=== PATIENT | female | born 1955 | race Hispanic/Latino ===

== ENCOUNTER 2020-05-24 12:47 | Emergency (ER) | payer BC ==
[2020-05-24 13:24] LABS: BASOPHILS % (AUTO) 0.4 % (0.0-5.0); EOSINOPHILS % (AUTO) 1.1 % (0.0-8.0); HEMATOCRIT 37.7 % (36-48); LYMPHOCYTES % (AUTO) 8.2 % (21.0-51.0); MEAN CORPUSCULAR HEMOGLOBIN 34.8 pg (27.0-33.0); MEAN CORPUSCULAR VOLUME 99.5 fL (79-99); MONOCYTES % (AUTO) 9.9 % (3.0-13.0); NEUTROPHILS % (AUTO) 79.1 % (40.0-77.0); PLATELET COUNT (AUTO) 46 K/uL (130-400); RED BLOOD CELL COUNT(AUTO) 3.79 MIL/uL (4.00-5.50); RED CELL DISTRIBUTION WIDTH 14.6 % (11.0-15.5); WHITE BLOOD COUNT (AUTO) 16.3 K/uL (4.8-10.8)
[2020-05-24 13:31] LABS: APPEARANCE,URINE Cloudy (CLEAR); BILIRUBIN,URINE Moderate (NEGATIVE); COLOR,URINE Dark Yellow (YELLOW); GLUCOSE, URINE (UA) Negative (NEGATIVE); KETONES,URINE Trace mg/dL (NEGATIVE); LEUKOCYTE ESTERASE ,URINE Small (NEGATIVE); NITRATE,URINE Positive (NEGATIVE); OCCULT BLOOD,URINE Trace (NEGATIVE); PROTEIN,URINE POS 1+ mg/dL (NEGATIVE)
[2020-05-24 13:35] LABS: CREATININE 0.9 mg/dL (0.5-1.5); POTASSIUM 3.4 mmol/L (3.5-5.1)
[2020-05-24 13:40] LABS: ALBUMIN 2.8 g/dL (3.5-5.0); BILIRUBIN,TOTAL 6.2 mg/dL (0.2-1.0); TOTAL PROTEIN, SERUM 6.8 g/dL (6.0-8.3)
[2020-05-24 13:58] LABS: BACTERIA,URINE Few /HPF (None Seen); MUCUS,URINE Few LPF (None Seen)
[2020-05-24] MEDS ORDERED: CEFTRIAXONE SODIUM 1 GM ONE (14:15)
[2020-05-24] MEDS ORDERED: PHENAZOPYRIDINE HCL 200 MG TABLET ONE (14:16)
== END 2020-05-24 16:53 | disposition home or self-care (01) ==
LOC: EDH 12:47
DX: N30.90 Cystitis, unspecified without hematuria (principal); K52.9 Noninfective gastroenteritis and colitis, unspecified; Z20.822 Contact with and (suspected) exposure to COVID-19; Z72.0 Tobacco use
CPT/HCPCS: 36415; 71045; 76705; 80053; 81001; 83605; 85025; 87077; 87088; 87186; 87426; 87507; 87804 ×2; 96374; 99285; J0696; U0003

== ENCOUNTER → 2020-07-18 | Outpatient (CLI) | payer BC | END | disposition home or self-care (01) | LOC: SHCH 14:54 | PROVIDERS: ATTEND Internal Medicine | DX: R06.09 Other forms of dyspnea (principal); R60.9 Edema, unspecified | CPT/HCPCS: 93306; 93356 ==

== ENCOUNTER 2020-08-07 13:52 | Emergency (ER) | payer BC ==
[~2020-08-07] VITALS: Ht 157.5 cm; Wt 99.3 kg
[2020-08-07 14:04] VITALS: BP 142/79
[2020-08-07 14:47] LABS: EOSINOPHILS % (AUTO) 3.6 % (0.0-8.0); HEMATOCRIT 39.5 % (36-48); LYMPHOCYTES % (AUTO) 25.9 % (21.0-51.0); MEAN CORPUSCULAR HGB CONC 33.9 g/dL (32.0-36.0); MEAN CORPUSCULAR VOLUME 100.3 fL (79-99); MONOCYTES % (AUTO) 13.1 % (3.0-13.0); NEUTROPHILS % (AUTO) 56.2 % (40.0-77.0); PLATELET COUNT (AUTO) 73 K/uL (130-400); RED BLOOD CELL COUNT(AUTO) 3.94 MIL/uL (4.00-5.50); RED CELL DISTRIBUTION WIDTH 14.4 % (11.0-15.5); WHITE BLOOD COUNT (AUTO) 5.8 K/uL (4.8-10.8)
[2020-08-07 15:07] VITALS: BP 132/82
[2020-08-07 15:08] LABS: CREATININE 0.8 mg/dL (0.5-1.5); POTASSIUM 3.7 mmol/L (3.5-5.1)
[2020-08-07 15:10] LABS: B-TYPE NATRIURETIC PEPTIDE 7 pg/mL (0-100)
[2020-08-07 15:13] LABS: ALBUMIN 2.6 g/dL (3.5-5.0); BILIRUBIN,TOTAL 3.4 mg/dL (0.2-1.0); CRP QUANTITATIVE 18.4 mg/L (0.00-9.0); TOTAL PROTEIN, SERUM 6.6 g/dL (6.0-8.3)
[2020-08-07 16:46] VITALS: BP 131/60
[2020-08-07] MEDS ORDERED: ALBUHFA IH ×2 (17:18→17:56)
[2020-08-07] MEDS ORDERED: LEVO750T46 PO (17:18)
[2020-08-07 17:46] VITALS: BP 114/60
== END 2020-08-07 19:02 | disposition home or self-care (01) ==
LOC: EDH 13:52
DX: U07.1 COVID-19 (principal); J12.9 Viral pneumonia, unspecified; Z88.0 Allergy status to penicillin; Z79.899 Other long term (current) drug therapy
CPT/HCPCS: 36415; 71045; 80053; 83690; 83880; 85025; 86140; 87635; 93005; 99285; C9803